=== PATIENT | female | born 1955 | race Caucasian/White ===

== ENCOUNTER 2018-01-16 13:50 | Outpatient (RCR) | payer BC | END 2018-04-16 | disposition home or self-care (01) | LOC: PT | DX: M25.511 Pain in right shoulder (principal); G89.29 Other chronic pain ==

== ENCOUNTER 2018-04-26 13:47 | Outpatient (RCR) | payer BC | END 2018-04-26 14:30 | disposition home or self-care (01) | LOC: PT 13:47 | DX: M25.511 Pain in right shoulder (principal); G89.29 Other chronic pain ==

== ENCOUNTER 2021-04-10 10:03 | Outpatient (RCR) | payer MEDICARE | END 2021-04-30 17:00 | LOC: PT 10:03 | DX: R53.81 Other malaise (principal) ==

== ENCOUNTER → 2021-05-22 | Outpatient (CLI) | payer MEDICARE | LOC: LAB 09:15 | DX: J96.12 Chronic respiratory failure with hypercapnia (principal) ==

== ENCOUNTER → 2021-05-29 | Outpatient (CLI) | payer MEDICARE | LOC: LAB 08:56 | DX: J96.12 Chronic respiratory failure with hypercapnia (principal) ==

== ENCOUNTER → 2021-06-05 | Outpatient (CLI) | payer MEDICARE | LOC: LAB 09:57 | DX: J96.12 Chronic respiratory failure with hypercapnia (principal) ==

== ENCOUNTER → 2021-06-12 | Outpatient (CLI) | payer MEDICARE | LOC: LAB 12:22 | DX: J96.12 Chronic respiratory failure with hypercapnia (principal) ==

== ENCOUNTER → 2021-06-19 | Outpatient (CLI) | payer MEDICARE | LOC: LAB 10:21 | DX: J96.12 Chronic respiratory failure with hypercapnia (principal) ==

== ENCOUNTER → 2021-06-26 | Outpatient (CLI) | payer MEDICARE | LOC: LAB 12:00 | DX: J96.12 Chronic respiratory failure with hypercapnia (principal) ==

== ENCOUNTER → 2021-08-21 | Outpatient (CLI) | payer MEDICARE | LOC: LAB 13:19 | DX: J96.12 Chronic respiratory failure with hypercapnia (principal) ==

== ENCOUNTER → 2021-09-25 | Outpatient (CLI) | payer MEDICARE | LOC: LAB 10:40 | DX: J96.12 Chronic respiratory failure with hypercapnia (principal) ==

== ENCOUNTER → 2021-10-09 | Outpatient (CLI) | payer MEDICARE | LOC: LAB 14:25 | DX: J96.12 Chronic respiratory failure with hypercapnia (principal) ==

== ENCOUNTER → 2021-11-24 | Outpatient (CLI) | payer MEDICARE | LOC: LAB 14:13 | DX: J96.12 Chronic respiratory failure with hypercapnia (principal) ==

== ENCOUNTER → 2021-12-21 | Outpatient (CLI) | payer MEDICARE | LOC: LAB 15:39 | DX: J96.12 Chronic respiratory failure with hypercapnia (principal) ==

== ENCOUNTER → 2022-02-08 | Outpatient (CLI) | payer MEDICARE ==
[2022-02-08 15:04] LABS: ALBUMIN 4.2 g/dL (3.4-4.8); POTASSIUM 4.4 mmol/L (3.5-5.1)
[2022-02-08 15:06] LABS: CALCIUM 10.6 mg/dL (8.3-10.5)
== END ==
LOC: LAB 14:43
PROVIDERS: Internal Medicine Nephrology
DX: J44.9 Chronic obstructive pulmonary disease, unspecified (principal); E87.3 Alkalosis; R80.8 Other proteinuria; R60.0 Localized edema

== ENCOUNTER 2022-04-10 19:30 | Emergency (ER) | payer MEDICARE ==
[~2022-04-10] VITALS: Ht 165.1 cm; Wt 92.7 kg
[2022-04-10 19:30] VITALS: BP 172/81
[2022-04-10 20:13] LABS: HEMATOCRIT 47.8 % (37.0-47.0); MEAN CELL VOLUME 100 fl (78-100); MEAN CORPUSCULAR HEMOGLOBIN 29 pg (27-31); MEAN CORPUSCULAR HGB CONC 29 g/dL (33-37); MEAN PLATELET VOLUME 9.7 fl (7.4-10.4); PLATELET COUNT 239 K/mm3 (130-400); RED BLOOD COUNT 4.77 M/mm3 (4.10-5.30); RED CELL DISTRIBUTION WIDTH 12.5 % (11.5-14.5); WHITE BLOOD COUNT 12.6 K/mm3 (4.8-10.8)
[2022-04-10 20:21] LABS: ALBUMIN 4.4 g/dL (3.4-4.8)
[2022-04-10 20:22] LABS: CALCIUM 10.2 mg/dL (8.3-10.5)
[2022-04-10 20:24] LABS: TOTAL PROTEIN 7.9 g/dL (6.2-8.1)
[2022-04-10 20:25] LABS: TOTAL BILIRUBIN 0.2 mg/dL (0.2-1.2)
[2022-04-10 20:41] LABS: LYMPHOCYTE 48 % (20-51); MONOCYTE 6 % (3-10); NEUTROPHILS 44 % (42-75)
[2022-04-10 20:54] LABS: PROTHROMBIN TIME 13.8 SECONDS (9.0-12.0)
[2022-04-10 21:04] LABS: D-DIMER 1.08 mg/L FEU (0.15-0.50)
== END 2022-04-10 23:30 | disposition short-term general hospital (02) ==
LOC: ED 19:30
PROVIDERS: Family Medicine
DX: J96.92 Respiratory failure, unspecified with hypercapnia (principal); Z20.822 Contact with and (suspected) exposure to COVID-19
CPT/HCPCS: A4618; J0456; J0692; J1953; J2930; J3360; J3370; J3490; J7050; Q9967

== ENCOUNTER → 2022-05-31 | Outpatient (CLI) | payer MEDICARE | LOC: LAB 13:33 | DX: J96.12 Chronic respiratory failure with hypercapnia (principal) ==

== ENCOUNTER → 2024-07-12 | Outpatient (CLI) | payer MEDICARE | LOC: MAMMO 10:36 | DX: Z12.31 Encounter for screening mammogram for malignant neoplasm of breast (principal) ==